=== PATIENT | male | born 1980 | race Caucasian/White ===

== ENCOUNTER 2024-08-27 07:25 | Emergency (ER) | payer MEDICAID ==
[~2024-08-27] VITALS: Ht 175.3 cm; Wt 63.6 kg
[2024-08-27 09:14] VITALS: BP 121/74; PULSE 65; RESP 16; TEMP 97; O2SAT 98
== END 2024-08-27 09:21 | disposition home or self-care (01) ==
LOC: ER 07:26
DX: S62.636A Displaced fracture of distal phalanx of right little finger, initial encounter for closed fracture (principal); Z88.8 Allergy status to other drugs, medicaments and biological substances; X58.XXXA Exposure to other specified factors, initial encounter; Y93.89 Activity, other specified; Y92.89 Other specified places as the place of occurrence of the external cause; Y99.8 Other external cause status
CPT/HCPCS: 29125; 73110; 73130; 99284